=== PATIENT | female | born 1975 | race African-American/Black ===

== ENCOUNTER → 2022-04-03 11:09 | Outpatient (BNVA) | payer MEDICAID, SELFPAY | PROVIDERS: PCP Internal Medicine; Referring Provider Internal Medicine; Visit Provider Internal Medicine Cardiovascular Disease | DX: R07.89 Other chest pain (principal) | CPT/HCPCS: 93005; 99202 ==

== ENCOUNTER → 2022-05-03 15:17 | Outpatient (REF) | payer MEDICAID, SELFPAY ==
--- NOTE | 2022-05-03 15:16 | CA_ITS ---
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 The visually estimated ejection fraction is between 60-65%. Diastolic function is normal for age. Right Ventricle Normal right ventricular cavity size and systolic function. Atria Both atria are normal in size. There is no evidence of interatrial shunt. Aortic Valve Normal aortic valve structure and function. There is no aortic valve stenosis. There is no aortic valve regurgitation. Mitral Valve Normal mitral valve structure and function. There is no mitral valve regurgitation. There is no mitral valve stenosis. Pulmonic Valve The pulmonic valve is likely normal. Tricuspid Valve Normal tricuspid valve structure. There is trace tricuspid valve regurgitation. The right ventricular systolic pressure is normal. The right ventricular systolic pressure is 20 mmHg. Normal right atrial pressure. There is no evidence of pulmonary hypertension. Great Vessels All visible segments of the aorta are normal in size. The pulmonary artery was not well visualized. Venous The inferior vena cava is normal in size and collapses greater than 50% with inspiration. Pericardium/Pleural There is no evidence of pericardial effusion. Prior Study Comparison No prior study available for comparison. Measurements 2D Linear Measurements IVSd: 0.74 0.6-0.9/0.6-1.0 cm LVIDd: 4.68 3.9-5.3/4.2-5.9 cm LVIDd Index: 2.41 2.4-3.2/2.2-3.1 cm/m2 LVIDs: 3.18 2.0-3.6 cm LVPWd: 0.75 0.7-1.1 cm LA Diam: 3.40 2.7-3.8/3.0-4.0 cm LAIDs Index: 1.75 1.5-2.3 cm/m2 LV Mass: 137.68 67-162/88-224 g LV Mass Index: 70.97 43-95/49-115 g/m2 LVOT Diam: 2.00 3.0+(-)1.3 cm 2D Systolic Function EF 4C: 52.50 >55% EF 2C: 62.80 >55% Mitral Valve MV Pk E: 0.97 MV PK A: 0.72 MV Decel Time: 187.00 E/A: 1.40 E'Lateral: 14.10 E'Medial: 9.14 E/E' Med: 10.60 E/E' Lat: 6.90 PHT: 55.00 MVA PHT: 4.00 Decel [place]: 5.16 Aortic Valve AoV Pk Felix: 1.54 AoV Mn Felix: 1.05 AoV VTI: 0.33 AoV Pk Grad: 9.00 Aov Mn Grad: 5.00 MAHOGANY Cont.VTI: 2.14 LVOT LVOT Pk Felix: 1.08 LVOT Mn Felix: 0.65 LVOT VTI: 0.22 LVOT Pk Grad: 5.00 LVOT Mn Grad: 2.00 LVOT Diam: 2.00 LVOT Area: 3.14 Diastolic Function MV Pk E: 0.97 MV Pk A: 0.72 E/A: 1.40 E'Medial: 9.14 E/E' Med: 10.60 E' Laterial: 14.10 E/E' Lat: 6.90 Right Ventricle TAPSE (mm): 23.00 TVS' Felix: 12.00 Tricuspid Valve TR Pk Felix: 2.09 TR Pk Grad: 17.00 RA Press: 3.00 RVSP: 20.00 Great Vessels Aorta Sinus of Valsalva: 2.90 2.0-3.[address] [place]: 2.43 1.7-3.4 cm Ao Asc: 3.30 2.1-3.4 cm Ao Arch: 2.90 Updated in Other Vendor System with Status of Final Jamie Candelaria MD electronically signed on 05/04/2022 10:57:42 AM with status of Final
== END ==
LOC: HO.CARD 15:17
PROVIDERS: PCP Internal Medicine; Visit Provider Internal Medicine Cardiovascular Disease
DX: R07.9 Chest pain, unspecified (principal)
CPT/HCPCS: 93306

== ENCOUNTER → 2022-05-23 09:10 | Outpatient (REF) | payer MEDICAID, SELFPAY ==
--- NOTE | 2022-05-23 09:12 | CA_ITS ---
Acquisition Time: 2022-05-23 09:10:30 Total Exercise Time: 00:06:00 Test Indications: R07.9 - Chest pain, unspecified Medications: Protocol: TEJAS Max HR: 171 BPM 97% of Pred: 176 BPM Max BP: 130/058 mmHG Max Work Load: 7.0 METS Exercise stress test with exercise 6 min of tejas protocol, acheiving 97% MPHR with request to stop due to fatigue, without anginal symptoms, without arrythmia, with normotensive and brisk chronotropic response to exercise ( reaching 85% MPHR by 2 min walking), without EKG changes meeting criteria for ischemia. Test reviewed with Dr Candelaria. Referred By: Jamie Candelaria Overread By: GEMA BLANCHARD
== END ==
LOC: HO.CARD 09:10
PROVIDERS: PCP Internal Medicine; Visit Provider Internal Medicine Cardiovascular Disease
DX: R07.9 Chest pain, unspecified (principal)
CPT/HCPCS: 93017

== ENCOUNTER → 2022-06-04 10:18 | Outpatient (BNVA) | payer MEDICAID, SELFPAY | PROVIDERS: PCP Internal Medicine; Referring Provider Internal Medicine; Visit Provider Internal Medicine Cardiovascular Disease | DX: R07.9 Chest pain, unspecified (principal) | CPT/HCPCS: 99212 ==

== ENCOUNTER 2022-08-30 11:29 | Outpatient (REF) | payer MEDICAID, SELFPAY ==
--- NOTE | ~2022-08-30 | XR_ITS ---
EXAMINATION: XR CHEST CLINICAL INFORMATION: Acute cough. COMPARISON: None TECHNIQUE: 2 views of the chest were obtained. FINDINGS: No significant abnormality is noted involving the heart, lungs, mediastinum, bony thorax or soft tissues. XR/XR chest 2V IMPRESSION: No acute cardiopulmonary process.
== END 2022-08-30 11:30 | disposition home or self-care (01) ==
LOC: HO.XRAY 11:29
PROVIDERS: PCP Registered Nurse; Visit Provider Internal Medicine
DX: R05.1 Acute cough (principal)
CPT/HCPCS: 71046

== ENCOUNTER 2023-03-01 13:39 | Outpatient (REF) | payer MEDICAID, SELFPAY ==
--- NOTE | ~2023-03-01 | XR_ITS ---
EXAMINATION: XR CHEST CLINICAL INFORMATION: Productive cough. COMPARISON: Chest x-ray 08/30/2022 TECHNIQUE: 2 views of the chest were obtained. FINDINGS: No significant abnormality is noted involving the heart, lungs, mediastinum, bony thorax or soft tissues. XR/XR chest 2V IMPRESSION: Unremarkable examination.
== END 2023-03-01 13:40 | disposition home or self-care (01) ==
LOC: HO.HHCX 13:39
PROVIDERS: Visit Provider Registered Nurse
DX: R05.1 Acute cough (principal)
CPT/HCPCS: 71046

== ENCOUNTER → 2023-04-02 10:14 | Outpatient (BNVA) | payer MEDICAID, SELFPAY | PROVIDERS: PCP Registered Nurse; Visit Provider Internal Medicine | DX: Z12.11 Encounter for screening for malignant neoplasm of colon (principal) | CPT/HCPCS: 99202 ==

== ENCOUNTER 2023-10-31 18:56 | Outpatient (REF) | payer MEDICAID, SELFPAY ==
[2023-11-02 17:03] LABS: Trichomonas vaginalis RNA NOT DETECTED (NOT DETECTED)
== END 2023-10-31 18:57 | disposition home or self-care (01) ==
LOC: HO.HHCLNP 18:56
PROVIDERS: Visit Provider Student in an Organized Health Care Education/Training Program
DX: Z00.00 Encounter for general adult medical examination without abnormal findings (principal); B20 Human immunodeficiency virus [HIV] disease
CPT/HCPCS: 36415; 87661

== ENCOUNTER 2023-12-05 09:08 | Outpatient (REF) | payer MEDICAID, SELFPAY ==
[2023-12-05 11:36] LABS: Appearance Urine Clear; Color Urine Yellow; Glucose Urine UA Negative (Negative); Leukocyte Esterase Urine Negative (Negative); Nitrite Urine Negative (Negative); PH 6.5 (5.0-9.0); UMIC TRIGGER UACC YES; Urine Blood Trace (Negative); Urine Ketones Negative (Negative); Urine Protein Negative (Neg-Trace)
[2023-12-05 11:42] LABS: Bacteria Urine None Seen (None Seen); Hyaline Casts Urine 0-2 /LPF (0-2); Squamous Epithelial Cell Urine 0-2 /HPF (0-2); WBC Urine 0-5 /HPF (0-5)
[2023-12-05 11:52] LABS: Hematocrit 38.2 % (37.0-47.0); Hemoglobin 12.5 g/dl (12.0-16.0); Mean Corpuscular HGB Conc 32.7 g/dl (31.0-35.0); Mean Corpuscular Hemoglobin 27.8 pg (27.0-33.0); Mean Corpuscular Volume 85.1 fL (80.0-98.0); Mean Platelet Volume 10.3 fL (9.4-12.3); Platelet Count 280 X10*3/uL (160-400); Red Blood Count 4.49 X10*6/uL (4.20-5.50); Red Cell Distribution Width 13.5 % (11.0-16.0); White Blood Count 4.9 X10*3/uL (4.8-10.8)
[2023-12-05 11:56] LABS: Estimated Average Glucose 126 mg/dL
[2023-12-05 12:14] LABS: Syphilis Screen Nonreactive (Nonreactive)
[2023-12-05 12:18] LABS: HBS Num1 31.29 mIU/mL (0-7.99); HBc Num1 0.11 S/CO (0.00-0.79); HBsAGNum1 0.55 S/CO (0.00-0.99); Hepatitis B Core Antibody Nonreactive (Nonreactive); Hepatitis B Surface Antigen Negative (Negative); ~HepC Num1 0.14 S/CO (0.00-0.79); ~Hepatitis B Surface Antibody REACTIVE (Nonreactive); ~Hepatitis C Antibody Nonreactive (Nonreactive)
[2023-12-05 12:21] LABS: Alanine Aminotransferase 23 U/L (0-31); Albumin Level 3.9 g/dL (3.5-5.0); Alkaline Phosphatase 74 U/L (39-117); Anion Gap 12 (12-20); Aspartate Amino Transferase 21 U/L (5-31); Bilirubin Total 0.3 mg/dL (0.0-1.0); Blood Urea Nitrogen 8 mg/dL (9-16); Calcium 9.7 mg/dL (8.4-10.2); Carbon Dioxide 24 mmol/L (22-29); Chloride 107 mmol/L (96-108); Cholesterol 174 mg/dL (<200); Estimated Glomerular Filt Rate > 60; Glucose Random 106 mg/dL (60-115); HDL Cholesterol 48 mg/dL (>40); LDL Cholesterol Calculated 115 mg/dL (<100); Potassium 4.5 mmol/L (3.3-5.1); Sodium 138 mmol/L (135-145); Total Protein 7.9 g/dL (6.5-8.0); Triglycerides 56 mg/dL (<150)
[2023-12-05 12:22] LABS: Vitamin D 25-OH Total 29.5 ng/mL (>30)
[2023-12-05 12:27] LABS: Folate 9.5 ng/mL (> or = 4.0); Vitamin B12 560 pg/mL (200-900)
[2023-12-05 14:29] LABS: CT PCR NOT DETECTED (Not Detect.); NG PCR NOT DETECTED (Not Detect.)
[2023-12-06 11:08] LABS: Mumps Virus IgG Antibody <9.00 AU/mL; Rubella IgG Antibody 2.58 Index; Rubeola IgG (Measles) >300.00 AU/mL; Toxoplasma IgM Antibody <8.00 AU/mL
[2023-12-06 14:08] LABS: Absolute CD3 Count 1172 cells/uL (840-3060); Absolute CD4 Count 660 cells/uL (490-1740); Absolute CD8 Count 492 cells/uL (180-1170); Absolute Lymphocytes 1564 cells/uL (850-3900); CD4 CD8 Ratio 1.34 (0.86-5.00); Percent CD3 Cells 75 % (57-85); Percent CD4 Cells 42 % (30-61); Percent CD8 Cells 31 % (12-42)
[2023-12-07 20:48] LABS: TS Negative Control Passed; TS Panel A 1; TS Panel B 0; TS Positive Control Passed; TSpotTB Negative (Negative)
[2023-12-08 14:39] LABS: HIV RNA PCR Qn Copies 94 copies/mL (NOT DETECTED); HIV RNA PCR Qn Log Copies 1.97 (NOT DETECTED)
== END 2023-12-05 09:09 | disposition home or self-care (01) ==
LOC: HO.HHCL 09:08
PROVIDERS: Visit Provider Student in an Organized Health Care Education/Training Program
DX: Z00.00 Encounter for general adult medical examination without abnormal findings (principal); B20 Human immunodeficiency virus [HIV] disease
CPT/HCPCS: 0353U; 36415; 80053; 80061; 81001; 82306; 82607; 82746; 83036; 84443; 85027; 86359; 86360; 86481; 86704; 86706; 86735; 86762; 86765; 86777; 86778; 86780; 86787; 86803; 87340; 87536

== ENCOUNTER 2024-03-12 09:17 | Outpatient (REF) | payer MEDICAID, SELFPAY ==
[2024-03-12 11:37] LABS: MANUAL DIFF FLAG NO
[2024-03-12 11:39] LABS: Basophils Percent Auto 0.6 % (0-2); Eosinophils Absolute Auto 0.1 X10*3/uL (0.0-0.4); Eosinophils Percent Auto 1.5 % (0-4); Hematocrit 35.8 % (37.0-47.0); Hemoglobin 11.7 g/dl (12.0-16.0); Imm Gran Abs Auto 0.02 X10*3/uL (0.00-0.03); Imm Gran Pct Auto 0.4 % (0.0-0.4); Lymphocytes Absolute Auto 1.5 X10*3/uL (1.2-4.9); Lymphocytes Percent Auto 31.1 % (20-40); Mean Corpuscular HGB Conc 32.7 g/dl (31.0-35.0); Mean Corpuscular Hemoglobin 28.1 pg (27.0-33.0); Mean Corpuscular Volume 85.9 fL (80.0-98.0); Mean Platelet Volume 10.1 fL (9.4-12.3); Monocytes Absolute Auto 0.3 X10*3/uL (0.1-1.2); Monocytes Percent Auto 7.1 % (2-11); Neutrophils Absolute Auto 2.8 x10*3/uL (2.0-8.3); Neutrophils Percent Auto 59.3 % (45-73); Platelet Count 263 X10*3/uL (160-400); Red Blood Count 4.17 X10*6/uL (4.20-5.50); Red Cell Distribution Width 13.8 % (11.0-16.0); White Blood Count 4.8 X10*3/uL (4.8-10.8)
[2024-03-12 12:38] LABS: Alanine Aminotransferase 15 U/L (0-31); Albumin Level 3.7 g/dL (3.5-5.0); Alkaline Phosphatase 61 U/L (39-117); Anion Gap 9 (12-20); Aspartate Amino Transferase 19 U/L (5-31); Bilirubin Total 0.3 mg/dL (0.0-1.0); Blood Urea Nitrogen 9 mg/dL (9-16); Calcium 9.5 mg/dL (8.4-10.2); Carbon Dioxide 24 mmol/L (22-29); Chloride 109 mmol/L (96-108); Estimated Glomerular Filt Rate > 60; Glucose Random 98 mg/dL (60-115); Potassium 4.3 mmol/L (3.3-5.1); Sodium 138 mmol/L (135-145); Total Protein 7.2 g/dL (6.5-8.0)
[2024-03-13 10:53] LABS: Absolute CD3 Count 1059 cells/uL (840-3060); Absolute CD4 Count 588 cells/uL (490-1740); Absolute CD8 Count 447 cells/uL (180-1170); Absolute Lymphocytes 1600 cells/uL (850-3900); CD4 CD8 Ratio 1.32 (0.86-5.00); Percent CD3 Cells 66 % (57-85); Percent CD4 Cells 37 % (30-61); Percent CD8 Cells 28 % (12-42)
[2024-03-13 13:04] LABS: HIV RNA PCR Qn Copies 221 copies/mL (NOT DETECTED); HIV RNA PCR Qn Log Copies 2.34 (NOT DETECTED)
== END 2024-03-12 09:18 | disposition home or self-care (01) ==
LOC: HO.HHCL 09:17
PROVIDERS: Visit Provider Student in an Organized Health Care Education/Training Program
DX: B20 Human immunodeficiency virus [HIV] disease (principal)
CPT/HCPCS: 36415; 80053; 85025; 86359; 86360; 87536

== ENCOUNTER 2024-03-24 09:40 | Outpatient (REF) | payer MEDICAID, SELFPAY ==
[2024-04-06 19:44] LABS: HIV 1 Integrase Proviral DNA DETECTED; HIV 1 PR RT Proviral DNA DETECTED
== END 2024-03-24 09:41 | disposition home or self-care (01) ==
LOC: HO.HHCL 09:40
PROVIDERS: Visit Provider Student in an Organized Health Care Education/Training Program
DX: B20 Human immunodeficiency virus [HIV] disease (principal)
CPT/HCPCS: 36415; 87900; 87901; 87906

== ENCOUNTER 2024-04-06 13:42 | Outpatient (REF) | payer MEDICAID, SELFPAY | END 2024-04-06 13:43 | disposition home or self-care (01) | LOC: HO.LNP 13:42 | PROVIDERS: Visit Provider Student in an Organized Health Care Education/Training Program | DX: B20 Human immunodeficiency virus [HIV] disease (principal) | CPT/HCPCS: 88112 ==

== ENCOUNTER 2024-07-07 09:06 | Outpatient (REF) | payer MEDICAID, SELFPAY ==
[2024-07-07 11:53] LABS: MANUAL DIFF FLAG NO
[2024-07-07 11:59] LABS: Basophils Percent Auto 0.4 % (0-2); Eosinophils Absolute Auto 0.1 X10*3/uL (0.0-0.4); Eosinophils Percent Auto 1.7 % (0-4); Hematocrit 37.3 % (37.0-47.0); Hemoglobin 12.1 g/dl (12.0-16.0); Imm Gran Abs Auto 0.01 X10*3/uL (0.00-0.03); Imm Gran Pct Auto 0.2 % (0.0-0.4); Lymphocytes Absolute Auto 1.6 X10*3/uL (1.2-4.9); Lymphocytes Percent Auto 30.7 % (20-40); Mean Corpuscular HGB Conc 32.4 g/dl (31.0-35.0); Mean Corpuscular Hemoglobin 27.8 pg (27.0-33.0); Mean Corpuscular Volume 85.7 fL (80.0-98.0); Mean Platelet Volume 10.3 fL (9.4-12.3); Monocytes Absolute Auto 0.4 X10*3/uL (0.1-1.2); Monocytes Percent Auto 7.8 % (2-11); Neutrophils Absolute Auto 3.1 x10*3/uL (2.0-8.3); Neutrophils Percent Auto 59.2 % (45-73); Platelet Count 292 X10*3/uL (160-400); Red Blood Count 4.35 X10*6/uL (4.20-5.50); Red Cell Distribution Width 13.5 % (11.0-16.0); White Blood Count 5.3 X10*3/uL (4.8-10.8)
[2024-07-07 12:09] LABS: Alanine Aminotransferase 20 U/L (0-31); Albumin Level 3.8 g/dL (3.5-5.0); Alkaline Phosphatase 68 U/L (39-117); Anion Gap 10 (12-20); Aspartate Amino Transferase 19 U/L (5-31); Bilirubin Total 0.2 mg/dL (0.0-1.0); Blood Urea Nitrogen 9 mg/dL (9-16); Calcium 9.9 mg/dL (8.4-10.2); Carbon Dioxide 24 mmol/L (22-29); Chloride 107 mmol/L (96-108); Estimated Glomerular Filt Rate > 60; Glucose Random 109 mg/dL (60-115); Iron 52 mcg/dL (30-160); Percent Iron Saturation 22 % (15-50); Potassium 4.1 mmol/L (3.3-5.1); Sodium 137 mmol/L (135-145); Total Iron Binding Capacity 238 mcg/dL (228-428); Total Protein 7.4 g/dL (6.5-8.0); Unsaturated Iron Binding 186 ug/dL
[2024-07-08 19:09] LABS: HIV RNA PCR Qn Copies 179 copies/mL (NOT DETECTED); HIV RNA PCR Qn Log Copies 2.25 (NOT DETECTED)
[2024-07-09 07:02] LABS: Mumps Virus IgG Antibody >300.00 AU/mL; Rubella IgG Antibody 7.55 Index; Rubeola IgG (Measles) >300.00 AU/mL
[2024-07-11 22:03] LABS: Absolute CD3 Count 1279 cells/uL (840-3060); Absolute CD4 Count 742 cells/uL (490-1740); Absolute CD8 Count 524 cells/uL (180-1170); Absolute Lymphocytes 1647 cells/uL (850-3900); CD4 CD8 Ratio 1.41 (0.86-5.00); Percent CD3 Cells 78 % (57-85); Percent CD4 Cells 45 % (30-61); Percent CD8 Cells 32 % (12-42)
== END 2024-07-07 09:07 | disposition home or self-care (01) ==
LOC: HO.HHCL 09:06
PROVIDERS: Visit Provider Student in an Organized Health Care Education/Training Program
DX: B20 Human immunodeficiency virus [HIV] disease (principal)
CPT/HCPCS: 36415; 80053; 83540; 85025; 86359; 86360; 86735; 86762; 86765; 87536

== ENCOUNTER 2024-09-25 09:34 | Outpatient (REF) | payer MEDICAID, SELFPAY ==
[2024-09-25 10:57] LABS: MANUAL DIFF FLAG NO
[2024-09-25 10:58] LABS: Basophils Percent Auto 0.4 % (0-2); Eosinophils Absolute Auto 0.1 X10*3/uL (0.0-0.4); Eosinophils Percent Auto 1.7 % (0-4); Hematocrit 38.1 % (37.0-47.0); Hemoglobin 12.7 g/dl (12.0-16.0); Imm Gran Abs Auto 0.02 X10*3/uL (0.00-0.03); Imm Gran Pct Auto 0.4 % (0.0-0.4); Lymphocytes Absolute Auto 1.5 X10*3/uL (1.2-4.9); Lymphocytes Percent Auto 32.7 % (20-40); Mean Corpuscular HGB Conc 33.3 g/dl (31.0-35.0); Mean Corpuscular Hemoglobin 28.2 pg (27.0-33.0); Mean Corpuscular Volume 84.7 fL (80.0-98.0); Mean Platelet Volume 9.7 fL (9.4-12.3); Monocytes Absolute Auto 0.4 X10*3/uL (0.1-1.2); Monocytes Percent Auto 7.7 % (2-11); Neutrophils Absolute Auto 2.7 x10*3/uL (2.0-8.3); Neutrophils Percent Auto 57.1 % (45-73); Platelet Count 283 X10*3/uL (160-400); Red Cell Distribution Width 13.6 % (11.0-16.0); White Blood Count 4.7 X10*3/uL (4.8-10.8)
[2024-09-25 11:31] LABS: Alanine Aminotransferase 26 U/L (0-31); Albumin Level 3.8 g/dL (3.5-5.0); Alkaline Phosphatase 68 U/L (39-117); Anion Gap 11 (12-20); Aspartate Amino Transferase 24 U/L (5-31); Bilirubin Total 0.2 mg/dL (0.0-1.0); Blood Urea Nitrogen 9 mg/dL (9-16); Calcium 9.7 mg/dL (8.4-10.2); Carbon Dioxide 26 mmol/L (22-29); Chloride 106 mmol/L (96-108); Estimated Glomerular Filt Rate > 60; Glucose Random 104 mg/dL (60-115); Potassium 3.7 mmol/L (3.3-5.1); Sodium 139 mmol/L (135-145); Total Protein 7.5 g/dL (6.5-8.0)
[2024-09-28 15:13] LABS: HIV RNA PCR Qn Copies 223 copies/mL (NOT DETECTED); HIV RNA PCR Qn Log Copies 2.35 (NOT DETECTED)
[2024-09-30 14:22] LABS: Absolute CD3 Count 1211 cells/uL (840-3060); Absolute CD4 Count 677 cells/uL (490-1740); Absolute CD8 Count 518 cells/uL (180-1170); Absolute Lymphocytes 1510 cells/uL (850-3900); CD4 CD8 Ratio 1.31 (0.86-5.00); Percent CD3 Cells 80 % (57-85); Percent CD4 Cells 45 % (30-61); Percent CD8 Cells 34 % (12-42)
== END 2024-09-25 09:35 | disposition home or self-care (01) ==
LOC: HO.HHCL 09:34
PROVIDERS: Visit Provider Student in an Organized Health Care Education/Training Program
DX: B20 Human immunodeficiency virus [HIV] disease (principal)
CPT/HCPCS: 36415; 80053; 85025; 86359; 86360; 87536

== ENCOUNTER 2024-12-02 09:46 | Outpatient (REF) | payer MEDICAID, SELFPAY ==
[2024-12-02 11:19] LABS: MANUAL DIFF FLAG NO
[2024-12-02 11:35] LABS: Basophils Percent Auto 0.4 % (0-2); Eosinophils Absolute Auto 0.1 X10*3/uL (0.0-0.4); Hematocrit 34.3 % (37.0-47.0); Hemoglobin 11.1 g/dl (12.0-16.0); Imm Gran Abs Auto 0.02 X10*3/uL (0.00-0.03); Imm Gran Pct Auto 0.4 % (0.0-0.4); Lymphocytes Absolute Auto 1.6 X10*3/uL (1.2-4.9); Lymphocytes Percent Auto 33.5 % (20-40); Mean Corpuscular HGB Conc 32.4 g/dl (31.0-35.0); Mean Corpuscular Hemoglobin 27.7 pg (27.0-33.0); Mean Corpuscular Volume 85.5 fL (80.0-98.0); Mean Platelet Volume 10.5 fL (9.4-12.3); Monocytes Absolute Auto 0.4 X10*3/uL (0.1-1.2); Monocytes Percent Auto 8.7 % (2-11); Neutrophils Absolute Auto 2.7 x10*3/uL (2.0-8.3); Platelet Count 262 X10*3/uL (160-400); Red Blood Count 4.01 X10*6/uL (4.20-5.50); Red Cell Distribution Width 14.2 % (11.0-16.0); White Blood Count 4.8 X10*3/uL (4.8-10.8)
[2024-12-02 11:54] LABS: Alanine Aminotransferase 19 U/L (0-31); Albumin Level 3.8 g/dL (3.5-5.0); Alkaline Phosphatase 61 U/L (39-117); Anion Gap 9 (12-20); Aspartate Amino Transferase 23 U/L (5-31); Bilirubin Total 0.2 mg/dL (0.0-1.0); Blood Urea Nitrogen 9 mg/dL (9-16); Calcium 8.9 mg/dL (8.4-10.2); Carbon Dioxide 22 mmol/L (22-29); Chloride 110 mmol/L (96-108); Cholesterol 141 mg/dL (<200); Estimated Glomerular Filt Rate > 60; Glucose Random 96 mg/dL (60-115); HDL Cholesterol 46 mg/dL (>40); LDL Cholesterol Calculated 86 mg/dL (<100); Sodium 137 mmol/L (135-145); Total Protein 7.4 g/dL (6.5-8.0); Triglycerides 47 mg/dL (<150)
[2024-12-02 12:01] LABS: Estimated Average Glucose 131 mg/dL; Hemoglobin A1C 129.1127 umol/L; Hemoglobin A1c % 6.2 % (<6.0); Total Hemoglobin (HGBA1C) 2942.8875 umol/L
[2024-12-02 12:52] LABS: HBS Num1 17.97 mIU/mL (0-7.99); HBc Num1 0.09 S/CO (0.00-0.79); HBsAGNum1 0.37 S/CO (0.00-0.99); Hepatitis B Core Antibody Nonreactive (Nonreactive); Hepatitis B Surface Antigen Negative (Negative); ~HepC Num1 0.14 S/CO (0.00-0.79); ~Hepatitis B Surface Antibody REACTIVE (Nonreactive); ~Hepatitis C Antibody Nonreactive (Nonreactive)
[2024-12-02 13:46] LABS: Reflex LDLD? No
[2024-12-05 13:18] LABS: TS Negative Control Passed; TS Panel A 3; TS Panel B 1; TS Positive Control Passed; TSpotTB Negative (Negative)
[2024-12-05 14:49] LABS: HIV RNA PCR Qn Copies NOT DETECTED copies/mL (NOT DETECTED); HIV RNA PCR Qn Log Copies NOT DETECTED (NOT DETECTED)
[2024-12-08 14:43] LABS: Absolute CD3 Count 1301 cells/uL (840-3060); Absolute CD4 Count 707 cells/uL (490-1740); Absolute CD8 Count 576 cells/uL (180-1170); Absolute Lymphocytes 1628 cells/uL (850-3900); CD4 CD8 Ratio 1.23 (0.86-5.00); Percent CD3 Cells 80 % (57-85); Percent CD4 Cells 43 % (30-61); Percent CD8 Cells 35 % (12-42)
== END 2024-12-02 09:47 | disposition home or self-care (01) ==
LOC: HO.HHCL 09:46
PROVIDERS: Visit Provider Internal Medicine
DX: Z11.1 Encounter for screening for respiratory tuberculosis (principal); B20 Human immunodeficiency virus [HIV] disease
CPT/HCPCS: 36415; 80053; 80061; 82550; 83036; 85025; 86359; 86360; 86481; 86704; 86706; 86803; 87340; 87536

== ENCOUNTER 2025-01-26 16:57 | Outpatient (REF) | payer MEDICAID, SELFPAY ==
[2025-01-26 18:44] LABS: CT PCR NOT DETECTED (Not Detect.); NG PCR NOT DETECTED (Not Detect.)
[2025-01-27 19:54] LABS: Trichomonas vaginalis RNA NOT DETECTED (NOT DETECTED)
== END 2025-01-26 16:58 | disposition home or self-care (01) ==
LOC: HO.HHCLNP 16:57
PROVIDERS: Visit Provider Student in an Organized Health Care Education/Training Program
DX: B20 Human immunodeficiency virus [HIV] disease (principal)
CPT/HCPCS: 87491; 87591; 87661

== ENCOUNTER 2025-01-29 09:03 | Outpatient (REF) | payer MEDICAID, SELFPAY ==
[2025-01-29 11:45] LABS: Hematocrit 36.8 % (37.0-47.0); Hemoglobin 11.9 g/dl (12.0-16.0); Mean Corpuscular HGB Conc 32.3 g/dl (31.0-35.0); Mean Corpuscular Hemoglobin 27.9 pg (27.0-33.0); Mean Corpuscular Volume 86.4 fL (80.0-98.0); Mean Platelet Volume 10.3 fL (9.4-12.3); Platelet Count 270 X10*3/uL (160-400); Red Blood Count 4.26 X10*6/uL (4.20-5.50); Red Cell Distribution Width 14.5 % (11.0-16.0); White Blood Count 5.7 X10*3/uL (4.8-10.8)
[2025-01-29 12:00] LABS: Estimated Average Glucose 131 mg/dL; Hemoglobin A1C 142.6839 umol/L; Hemoglobin A1c % 6.2 % (<6.0); Total Hemoglobin (HGBA1C) 3201.4623 umol/L
[2025-01-29 12:04] LABS: Iron 59 mcg/dL (30-160); Percent Iron Saturation 24 % (15-50); Total Iron Binding Capacity 244 mcg/dL (228-428); Unsaturated Iron Binding 185 ug/dL
[2025-01-29 12:22] LABS: Syphilis Screen Nonreactive (Nonreactive)
[2025-01-29 12:27] LABS: Ferritin 40 ng/mL (10-250); TSH reflex Free T4 2.47 uIU/mL (0.32-4.0); Vitamin D 25-OH Total 32.9 ng/mL (>30)
[2025-02-01 13:12] LABS: HIV RNA PCR Qn Copies 100 copies/mL (NOT DETECTED)
== END 2025-01-29 09:04 | disposition home or self-care (01) ==
LOC: HO.HHCL 09:03
PROVIDERS: Visit Provider Student in an Organized Health Care Education/Training Program
DX: B20 Human immunodeficiency virus [HIV] disease (principal); Z00.00 Encounter for general adult medical examination without abnormal findings
CPT/HCPCS: 36415; 82306; 82728; 83036; 83540; 84443; 85027; 86780; 87536

== ENCOUNTER 2025-06-04 08:56 | Outpatient (REF) | payer MEDICAID, SELFPAY ==
[2025-06-04 11:10] LABS: MANUAL DIFF FLAG NO
[2025-06-04 11:23] LABS: Hematocrit 34.8 % (37.0-47.0); Hemoglobin 11.2 g/dl (12.0-16.0); Imm Gran Abs Auto 0.01 X10*3/uL (0.00-0.03); Imm Gran Pct Auto 0.2 % (0.0-0.4); Lymphocytes Absolute Auto 1.8 X10*3/uL (1.2-4.9); Mean Corpuscular HGB Conc 32.2 g/dl (31.0-35.0); Mean Corpuscular Hemoglobin 27.6 pg (27.0-33.0); Mean Corpuscular Volume 85.7 fL (80.0-98.0); NRBC Abs Auto 0.000 X10*3/uL (0.0-0.012); NRBC Pct Auto 0.0 /100WBC (0.0-0.2); Platelet Count 260 X10*3/uL (160-400); Red Blood Count 4.06 X10*6/uL (4.20-5.50); White Blood Count 5.7 X10*3/uL (4.8-10.8)
[2025-06-04 11:40] LABS: Alanine Aminotransferase 14 U/L (0-31); Albumin Level 3.9 g/dL (3.5-5.0); Alkaline Phosphatase 58 U/L (39-117); Anion Gap 10 (12-20); Aspartate Amino Transferase 22 U/L (5-31); Blood Urea Nitrogen 10 mg/dL (9-16); Calcium 9.1 mg/dL (8.4-10.2); Carbon Dioxide 23 mmol/L (22-29); Chloride 108 mmol/L (96-108); Estimated Glomerular Filt Rate > 60; Potassium 4.0 mmol/L (3.3-5.1); Sodium 137 mmol/L (135-145); Total Protein 7.2 g/dL (6.5-8.0)
[2025-06-07 14:38] LABS: HIV RNA PCR Qn Copies 85 copies/mL (NOT DETECTED); HIV RNA PCR Qn Log Copies 1.93 (NOT DETECTED)
== END 2025-06-04 08:57 | disposition home or self-care (01) ==
LOC: HO.HHCL 08:56
PROVIDERS: Internal Medicine; PCP Student in an Organized Health Care Education/Training Program; Visit Provider Student in an Organized Health Care Education/Training Program
DX: B20 Human immunodeficiency virus [HIV] disease (principal)
CPT/HCPCS: 36415; 80053; 85025; 87536

== ENCOUNTER 2025-06-29 | Outpatient (REF) | payer MEDICAID, SELFPAY | END 2025-06-29 00:01 | disposition home or self-care (01) | LOC: HO.LNP | PROVIDERS: Visit Provider Student in an Organized Health Care Education/Training Program | DX: B20 Human immunodeficiency virus [HIV] disease (principal) | CPT/HCPCS: 88112 ==

== ENCOUNTER 2025-07-15 09:12 | Outpatient (REF) | payer MEDICAID, SELFPAY ==
--- NOTE | 2025-07-15 | EEG_ITS ---
Roomed Performed:?[id number] Reason: syncope and collapse History: HIV - patient reports one episode of standing up out of bed and passing out against wall. Patient came to on the floor with no memory of what happened. Urine in continence noted. Medication: Vitamin D3, dovato, metformin Technical description? Photic stimulation: completed Hyperventilation:?good effort Behavioral state: pleasant State of Consciousness: awake Skull defect: none Sedation: no Handedness: right Duration of study:?32 min 20 sec Description: This is a 16 channel EEG with an EKG lead. Patient is reported awake during the tracing. Background EEG rhythm is low amplitude fast with no obvious asymmetry or paroxysmal tendency. Photic stimulation does not produce any significant abnormality. Hyperventilation is unremarkable. Cardiac lead does not reveal any significant abnormality. No sharp wave spikes or paroxysmal tendency noted. Impression: Unremarkable EEG. MTDD
== END 2025-07-15 09:13 | disposition home or self-care (01) ==
LOC: HO.NEURO 09:12
PROVIDERS: PCP Student in an Organized Health Care Education/Training Program; Visit Provider Student in an Organized Health Care Education/Training Program
DX: B20 Human immunodeficiency virus [HIV] disease (principal); R55 Syncope and collapse
CPT/HCPCS: 95816

== ENCOUNTER → 2025-07-15 09:15 | Outpatient (BNV) | payer MEDICAID, SELFPAY | PROVIDERS: PCP Student in an Organized Health Care Education/Training Program; Visit Provider Psychiatry & Neurology Neurology | DX: R55 Syncope and collapse (principal) | CPT/HCPCS: 95816 ==

== ENCOUNTER 2025-09-04 10:22 | Outpatient (REF) | payer MEDICAID, SELFPAY ==
[2025-09-04 10:37] LABS: MANUAL DIFF FLAG NO
[2025-09-04 11:26] LABS: Hematocrit 38.7 % (37.0-47.0); Hemoglobin 12.5 g/dl (12.0-16.0); Imm Gran Abs Auto 0.01 X10*3/uL (0.00-0.03); Imm Gran Pct Auto 0.2 % (0.0-0.4); Lymphocytes Absolute Auto 1.5 X10*3/uL (1.2-4.9); Mean Corpuscular HGB Conc 32.3 g/dl (31.0-35.0); Mean Corpuscular Hemoglobin 27.8 pg (27.0-33.0); Mean Corpuscular Volume 86.0 fL (80.0-98.0); NRBC Abs Auto 0.000 X10*3/uL (0.0-0.012); NRBC Pct Auto 0.0 /100WBC (0.0-0.2); Platelet Count 298 X10*3/uL (160-400); Red Blood Count 4.50 X10*6/uL (4.20-5.50); White Blood Count 5.3 X10*3/uL (4.8-10.8)
[2025-09-04 11:44] LABS: Alanine Aminotransferase 18 U/L (0-31); Albumin Level 4.2 g/dL (3.5-5.0); Alkaline Phosphatase 61 U/L (39-117); Anion Gap 15 (12-20); Aspartate Amino Transferase 19 U/L (5-31); Blood Urea Nitrogen 12 mg/dL (9-16); Calcium 9.5 mg/dL (8.4-10.2); Carbon Dioxide 21 mmol/L (22-29); Chloride 108 mmol/L (96-108); Estimated Glomerular Filt Rate > 60; Potassium 4.3 mmol/L (3.3-5.1); Sodium 140 mmol/L (135-145); Total Protein 7.6 g/dL (6.5-8.0)
[2025-09-10 15:34] LABS: Absolute CD3 Count 1163 cells/uL (840-3060); Absolute CD8 Count 471 cells/uL (180-1170); HIV RNA PCR Qn Copies 208 copies/mL (NOT DETECTED); HIV RNA PCR Qn Log Copies 2.32 (NOT DETECTED); Percent CD3 Cells 78 % (57-85); Percent CD8 Cells 32 % (12-42)
== END 2025-09-04 10:23 | disposition home or self-care (01) ==
LOC: HO.LAB 10:22
PROVIDERS: PCP Student in an Organized Health Care Education/Training Program; Visit Provider Student in an Organized Health Care Education/Training Program
DX: B20 Human immunodeficiency virus [HIV] disease (principal)
CPT/HCPCS: 36415; 80053; 83036; 85025; 86359; 86360; 87536

== ENCOUNTER 2025-10-20 10:07 | Outpatient (REF) | payer MEDICAID, SELFPAY ==
[2025-10-20 14:42] LABS: Alanine Aminotransferase 20 U/L (0-31); Albumin Level 4.1 g/dL (3.5-5.0); Alkaline Phosphatase 59 U/L (39-117); Anion Gap 11 (12-20); Aspartate Amino Transferase 24 U/L (5-31); Blood Urea Nitrogen 10 mg/dL (9-16); Calcium 9.6 mg/dL (8.4-10.2); Carbon Dioxide 21 mmol/L (22-29); Chloride 109 mmol/L (96-108); Estimated Glomerular Filt Rate > 60; Potassium 4.0 mmol/L (3.3-5.1); Sodium 137 mmol/L (135-145); Total Protein 7.6 g/dL (6.5-8.0)
[2025-10-22 13:28] LABS: HIV RNA PCR Qn Copies 628 copies/mL (NOT DETECTED); HIV RNA PCR Qn Log Copies 2.80 (NOT DETECTED)
[2025-10-23 12:38] LABS: Absolute CD3 Count 1483 cells/uL (840-3060); Absolute CD8 Count 609 cells/uL (180-1170); Percent CD3 Cells 77 % (57-85); Percent CD8 Cells 31 % (12-42)
== END 2025-10-20 10:08 | disposition home or self-care (01) ==
LOC: HO.HHCL 10:07
PROVIDERS: PCP Student in an Organized Health Care Education/Training Program; Visit Provider Student in an Organized Health Care Education/Training Program
DX: B20 Human immunodeficiency virus [HIV] disease (principal)
CPT/HCPCS: 36415; 80053; 86359; 86360; 87536; 87900; 87901; 87906